=== PATIENT | female | born 1985 | race Caucasian/White ===

== ENCOUNTER 2017-12-08 11:48 | Emergency (ER) | payer SELFPAY ==
[~2017-12-08] VITALS: Ht 165.1 cm; Wt 62.7 kg
[2017-12-08 11:52] VITALS: BP 147/99
--- NOTE | 2017-12-08 11:55 | NUR ---
32Y/F BIB SELF C/O COUGH CONGESTION BODYACHES FATIGUE X 2 SINUS PRESSURE, THROAT DISCOMFORT. PT STATES " SHE HAS THE FLU SYMPTOMS AND NEEDS TO GET BETTER FOR WORK". PT IS AAOX4, VSS, DENIES FEVER, N/V/D AT THIS TIME, EVEN AND UNLABORED BREATHING AT THIS TIME, BED DOWN, BEDRAIL UP X 1, ER MD AWARE AND NOTIFIED OF PT STATUS. HX---DENIES RX---NONE
--- NOTE | 2017-12-08 12:21 | NUR ---
Patient being evaluated by physician at bedside.
--- NOTE | 2017-12-08 12:38 | NUR ---
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
--- NOTE | 2017-12-08 15:12 | NUR ---
DR. FARR IN PT ROOM TALKING TO PT AT THIS TIME
[2017-12-08 15:18] VITALS: BP 137/87
--- NOTE | 2017-12-08 15:18 | NUR ---
Patient discharged with v/s stable. Written and verbal after care instructions given and explained. Patient alert, oriented and verbalized understanding of instructions. Carried with steady gait. All questions addressed prior to discharge. ID band removed. Patient advised to follow up with PMD. Rx of PREDNISONE, AZITHROMYCIN, PROMETHAZINE given. Patient educated on indication of medication including possible reaction and side effects. Opportunity to ask questions provided and answered.
== END 2017-12-08 15:18 | disposition home or self-care (01) ==
LOC: MED 11:48
DX: J40 Bronchitis, not specified as acute or chronic (principal); J32.9 Chronic sinusitis, unspecified; R63.0 Anorexia
CPT/HCPCS: 36415; 81025; 87804; 99284